=== PATIENT | male | born 1960 | race Caucasian/White ===

== ENCOUNTER → 2019-12-06 16:07 | Outpatient (CLI) | payer OTHER, SELFPAY ==
--- NOTE | 2019-12-06 16:18 | MRI_ITS ---
STUDY: MRI CERVICAL SPINE WITHOUT CONTRAST REASON FOR EXAM: Male, 59 years old. neck pain, tremors x 3 years, no radiculopathy TECHNIQUE: Standardized fat and water weighted pulse sequences were obtained in the sagittal and axial planes. COMPARISON: None FINDINGS: Normal foramen magnum and brainstem-cervical cord junction. Normal craniovertebral junction. There are degenerative changes of the anterior atlantoaxial articulation. Normal odontoid process. Normal cervical lordosis. Normal vertebral bodies and posterior osseous elements. C2-3: Disc osteophyte complex with mild bilateral foraminal stenoses. C3-4: Disc osteophyte complex with moderate central canal and severe bilateral foraminal stenoses. C4-5: Disc osteophyte complex with severe central canal stenosis, mild cord compression, and severe bilateral foraminal stenoses. C5-6: Disc osteophyte complex with moderate central canal and severe bilateral foraminal stenoses. C6-7: Normal endplates. Normal disc height, signal and morphology. Normal central canal and intervertebral neural foramina. C7-T1: Normal endplates. Normal disc height, signal and morphology. Normal central canal and intervertebral neural foramina. No intrinsic cord signal abnormalities are seen at this time. Normal visualized soft tissue structures. MRI/Spine Cervical (Routine) IMPRESSION: Multilevel degenerative disease as described. Severe central canal stenosis and mild cord compression at the C4-5 level. Severe bilateral foraminal stenoses at the C3-4, C4-5, and C5-6 levels. Electronically Signed: Saulo Lopez MD at 18:20 EDT Tel , Service support ,
== END ==
PROVIDERS: Referring Provider Anesthesiology Pain Medicine; Visit Provider Anesthesiology Pain Medicine
DX: M48.02 Spinal stenosis, cervical region (principal); M50.30 Other cervical disc degeneration, unspecified cervical region
CPT/HCPCS: 72141